=== PATIENT | male | born 1975 | race Caucasian/White ===

== ENCOUNTER → 2016-08-18 | Outpatient (CLI) | payer OTHER ==
--- NOTE | 2016-08-18 16:48 | KCIC ---
PROCEDURE MRI thoracic spine without contrast. HISTORY Chronic back pain, minimal back pain for years which varies from side to side TECHNIQUE Sagittal and axial T1 and T2 and sagittal STIR images were acquired of the thoracic spine. Contrast: None COMPARISON None FINDINGS Thoracic vertebral body stature and AP alignment are preserved. Thoracic cord caliber is within normal limits without significant focal signal abnormality. Intervertebral disc spaces are overall adequate. There is no significant focal marrow edema. There is very shallow protrusion in the right lateral recess at T1-T2. There is also a shallow protrusion in the right lateral recess T6-7. There is also shallow protrusion in the right lateral recess T7-8. There is negligible protrusion left lateral recess T8-T9. There is very shallow protrusion right lateral recess T9-T10. There is no significant thoracic spinal stenosis at any level. There is mild narrowing of the left T8-T9 neural foramen by facet, otherwise thoracic neural foramina overall adequate. IMPRESSION There are multilevel shallow posterior protrusions as stated, no significant thoracic spinal stenosis. Electronically signed by: Aubrey Hartman MD (Aug 18, 2016 16:46:14)
== END | disposition home or self-care (01) ==
LOC: KCIC MRI 15:12
PROVIDERS: ATTEND Family Medicine
DX: G89.29 Other chronic pain (principal); M54.9 Dorsalgia, unspecified; M51.24 Other intervertebral disc displacement, thoracic region
CPT/HCPCS: 72146